=== PATIENT | female | born 1970 | race African-American/Black ===

== ENCOUNTER 2017-12-13 09:50 | Emergency (ER) | payer OTHER, SELFPAY ==
[2017-12-13] MEDS ORDERED: Ketorolac Tromethamine 60 MG/2 ML VIAL ONE (10:52)
--- NOTE | 2017-12-13 13:50 | RAD ---
LUMBAR SPINE 3 VIEWS: DATE: 12/13/17. FINDINGS: No fracture, dislocation, or acute bony change was seen. There is mild disk space narrowing at the T 9-T10 level with osteophytes anteriorly. There is a little irregularity of the superior end plate of T9 that I suspect is connected to the same. The SI joints appear normal. IMPRESSION: No acute findings. POS: HOME
--- NOTE | 2017-12-13 13:53 | CT ---
CT OF THE BRAIN WITHOUT CONTRAST: DTAE: 12/13/17. FINDINGS: The ventricles are normal in size with no shift. No intracranial bleeding or extraaxial hematoma was seen. There is no sign of mass, stroke, or edema. The calvarium appears intact with no sign of fra cture. The sphenoid sinus and other paranasal sinuses are clear. The mastoid air cells are clear. T here appears to be a small area of soft tissue swelling over the right forehead with no underlying [place] changes. IMPRESSION: No acute intracranial finding. POS: HOME
--- NOTE | 2017-12-13 13:59 | CT ---
CT OF THE CERVICAL SPINE: DATE: 12/13/17. HISTORY: Spiral CT of the cervical spine was performed following trauma. Axial slices were acquired, then cor onal and sagittal reconstructions were done. There is loss of the normal cervical lordosis which may be due to muscle spasm. The C1 to dens dista nce is normal. The soft tissues are normal thickness. There is a plethora of small cervical nodes b ilaterally along the deep cervical chains, a nonspecific finding. Findings by level follow: C1-C2: No acute findings. C2-C3: No acute findings. C3-C4: No acute findings. There may be slight foraminal narrowing on the left. C4-C5: No acute findings. C5-C6: Small central osteophyte without gross impingement. C6-C7: Mild to moderate left foraminal narrowing due to osteophytes. Anterior osteophytes are rathe r prominent. C7-T1: No acute findings. 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 The upper 2 thoracic vertebrae were unremarkable. The lung apices are clear. IMPRESSION: Scattered degenerative changes as noted. Loss of normal cervical lordosis which may be due to muscle spasm. Nonspecific cervical adenopathy. Scans were initially delayed due to construction around the CT scanner. Results of both scans called to Dr. Elias at 1143 on 12/13/17. CODE CR POS: HOME
== END 2017-12-13 12:08 | disposition home or self-care (01) ==
LOC: BURERS 09:50
DX: S06.0X0A Concussion without loss of consciousness, initial encounter (principal); S13.9XXA Sprain of joints and ligaments of unspecified parts of neck, initial encounter; S00.83XA Contusion of other part of head, initial encounter; M54.5 Low back pain; K02.9 Dental caries, unspecified; K03.81 Cracked tooth; I10 Essential (primary) hypertension; E66.01 Morbid (severe) obesity due to excess calories; Z79.899 Other long term (current) drug therapy; V43.52XA Car driver injured in collision with other type car in traffic accident, initial encounter
CPT/HCPCS: 70450; 72100; 72125; 96372; J1885

== ENCOUNTER 2020-06-10 11:45 | Emergency (ER) | payer OTHER ==
[2020-06-10 12:29] LABS: Hemoglobin 12.3 g/dL (12.0-16.0); Mean Corpuscular HGB CONC 29.1 g/dL (32.0-36.0); Mean Corpuscular Hemoglobin 23.7 pg (27.0-31.0); Mean Corpuscular Volume 81.5 fL (78.0-98.0); Mean Platelet Volume 10.9 fL (7.4-10.4); Platelet Count 193 thou/uL (130-400); RBC Distribution Width 15.4 % (11.5-14.5); Red Blood Cell (RBC) Count 5.18 mill/uL (4.20-5.40); White Blood Cell (WBC) Count 5.9 thou/uL (4.8-10.8)
[2020-06-10 12:42] LABS: ALT (SGPT) 21 U/L (8-55); AST (SGOT) 15 U/L (5-34); Albumin 4.1 g/dL (3.5-5.0); Alkaline Phosphatase 96 U/L (40-110); Anion Gap 13 mmol/L (10-20); BUN (Urea Nitrogen) 10 mg/dL (7.0-18.7); Bilirubin, Total 0.2 mg/dL (0.2-1.2); Calc. Creatinine Clearance 0 mL/min (70-130); Carbon Dioxide 25 mmol/L (22-29); Chloride 107 mmol/L (98-107); Estimated GFR-MDRD Greater than 90; Globulin 3.3 g/dL (2.4-3.5); Glucose 112 mg/dL (70-105); Potassium 3.7 mmol/L (3.5-5.1); Protein, Total 7.4 g/dL (6.0-8.3); Sodium 141 mmol/L (136-145)
[2020-06-10 12:52] LABS: #Basophils 0.1 thou/uL (0.0-0.2); #Eosinphils 0.1 thou/uL (0.0-0.7); #Lymphocytes 2.9 thou/uL (1.20-3.40); #Monocytes 0.4 thou/uL (0.11-0.59); #Neutrophils 2.5 thou/uL (1.40-6.50); %Basophils 1.6 % (0.0-1.0); %Lymphocytes 48.4 % (21.0-51.0); %Monocytes 6.6 % (0.0-10.0); %Neutrophils 41.4 % (42.0-75.0); Hypochromia MODERATE=16-30 cells (100X) (0-5/hpf); MDiff Complete? YES
[2020-06-10 12:57] LABS: Bilirubin Negative (Negative); Blood, Urine Negative (Negative); Clarity Clear (Clear); Glucose, Urine (Dipstick) Negative (Negative); Ketone, Urine Negative (Negative); Leukocyte Negative (Negative); Nitrite Negative (Negative); Protein, Urine (Dipstick) Negative (Neg-Trace); Urobilinogen 0.2 mg/dL (Less than 2)
--- NOTE | 2020-06-10 13:04 | CT ---
CT OF THE BRAIN WITHOUT CONTRAST: Date: 06/10/2020 Comparison is made with the prior study of 12/13/2017. Today's exam shows no interval change. The ventricles are normal in size with no shift. No intracrani al bleeding, mass, or sign of acute stroke was found. No edema was evident. The skull appears normal and the visible paranasal sinuses and mastoid air cells are clear. IMPRESSION: No acute intracranial findings. Preliminary report called to [place] in the ER at 1254 hours on 06/12/2020. CODE CR. POS: HOME
[2020-06-10 13:06] LABS: Amphetamine Not Detected (NotDetected); Barbiturates Screen Not Detected (NotDetected); Benzodiazepine Screen Not Detected (NotDetected); Cocaine Metabolite Screen Not Detected (NotDetected); Medtox Control Line Valid? VALID (VALID); Methadone Not Detected (NotDetected); Methamphetamine Not Detected (NotDetected); Opiate Screen Not Detected (NotDetected); Oxycodone Screen Not Detected (NotDetected); Phencyclidine (PCP) Not Detected (NotDetected); THC/Cannabinoid Screen Not Detected (NotDetected); Tricyclic Screen Not Detected (NotDetected)
--- NOTE | 2020-06-10 13:08 | RAD ---
PORTABLE CHEST: Date: 06/10/2020 Comparison is made with the prior study of 01/19/2019. The heart is upper normal in size, but unchanged since the prior exam. There is no clear vascular con gestion, edema, or pleural effusion. The lungs are clear. The mediastinum is unremarkable. IMPRESSION: No acute thoracic finding. POS: HOME
== END 2020-06-10 17:00 | disposition short-term general hospital (02) ==
LOC: BURERS 11:45
DX: G45.9 Transient cerebral ischemic attack, unspecified (principal); I10 Essential (primary) hypertension; Z79.899 Other long term (current) drug therapy
CPT/HCPCS: 36415; 70450; 71045; 80053; 80306; 81003; 83605; 84443; 84484; 85025; 93005; 94760